=== PATIENT | female | born 1940 | race Caucasian/White ===

== ENCOUNTER 2018-03-07 14:24 | Outpatient (CLI) | payer OTHER | END 2018-03-07 14:32 | disposition home or self-care (01) | LOC: RAD 14:24 | DX: M17.0 Bilateral primary osteoarthritis of knee (principal) ==

== ENCOUNTER 2018-06-25 00:14 | Emergency (ER) | payer OTHER ==
[~2018-06-25] VITALS: Ht 160 cm; Wt 72.6 kg
[2018-06-25] MEDS ORDERED: CEFDINIR300 MG PO (06:05)
[2018-06-25] MEDS ORDERED: MEDROLPACK PO (06:05)
[2018-06-25] MEDS ORDERED: SYMBICORT 16010.2 GM IH (06:05)
[2018-06-28] MEDS ORDERED: RESPTHERAMACH (14:51)
[2018-06-28] MEDS ORDERED: XOPENEX CO1.25 MG/0. IH (14:52)
== END 2018-06-25 07:31 | disposition home or self-care (01) ==
LOC: ER 00:14
DX: J20.9 Acute bronchitis, unspecified (principal); E16.1 Other hypoglycemia; J11.1 Influenza due to unidentified influenza virus with other respiratory manifestations

== ENCOUNTER → 2018-06-28 | Emergency (ER) | payer OTHER ==
[~2018-06-28] VITALS: Ht 154.9 cm; Wt 77.1 kg
[~2018-06-28] MED LIST: CEFDINIR300 MG PO; MEDROLPACK PO; RESPTHERAMACH; SYMBICORT 16010.2 GM IH; XOPENEX CO1.25 MG/0. IH
== END | disposition home or self-care (01) ==
LOC: ER 11:00 → CPU-OBS 11:12 → ER 11:12
DX: J40 Bronchitis, not specified as acute or chronic (principal)